=== PATIENT | male | born 1990 | race Caucasian/White ===

== ENCOUNTER 2022-10-19 20:07 | Emergency (ER) | payer OTHER ==
[~2022-10-19] VITALS: Ht 165.1 cm; Wt 85.1 kg
--- NOTE | 2022-10-19 21:24 | EKG ---
[facility] [address] [facility] [place] [address] Signed Sinus tachycardia Otherwise normal ECG No previous ECGs available Confirmed by Corey Olvera MD () on 10/19/2022 9:24:32 PM Electronically Signed By: COREY OLVERA MD 10/19/222123 PATIENT NAME: JESS HILLARYCYRIL MOHIT Electrocardiogram DATE OF : [birth year] PHYSICIAN: COREY OLVERA MD REPORT #: [id number] REPORT IS CONFIDENTIAL AND NOT TO BE RELEASED WITHOUT AUTHORIZATION
== END 2022-10-19 21:15 | disposition home or self-care (01) ==
LOC: ED 20:07
DX: I47.1 Supraventricular tachycardia (principal); I48.91 Unspecified atrial fibrillation; Z88.5 Allergy status to narcotic agent
CPT/HCPCS: 36415; 80053; 83735; 84484; 85025; 85610; 93005; 93010; 96374; 99285-25